=== PATIENT | male | born 1970 | race Caucasian/White ===

== ENCOUNTER 2022-10-07 13:51 | Emergency (ER) | payer OTHER ==
[~2022-10-07] VITALS: Ht 177.8 cm; Wt 95.3 kg
--- NOTE | 2022-10-07 14:14 | NUR ---
Dr Farias at the bedside for MSE.
[2022-10-07] MEDS ORDERED: NAPROXEN 500 MG TABLET ONE (14:20)
[2022-10-07] MEDS ORDERED: CYCLOBENZAPRINE HCL 10 MG TABLET ONE (14:20)
[2022-10-07] MEDS ORDERED: NAPROXEN 500 MG TABLET PO ONE (14:30)
[2022-10-07] MEDS ORDERED: CYCLOBENZAPRINE HCL 10 MG TABLET PO ONE (14:30)
--- NOTE | 2022-10-07 14:34 | NUR ---
X ray in progress.
[2022-10-07] MEDS ORDERED: CYCL10TA9 PO (15:05)
[2022-10-07] MEDS ORDERED: NAPR500T6 PO (15:05)
--- NOTE | 2022-10-07 15:35 | NUR ---
Patient discharged to home in stable condition. Written and verbal after care instructions given. Patient verbalizes understanding of instructions. Stressed follow up or return to ER for worsening s/s.
[2022-10-07 15:36] VITALS: BP 129/70
== END 2022-10-07 15:37 | disposition home or self-care (01) ==
LOC: ER 13:51
DX: M79.605 Pain in left leg (principal); V43.52XA Car driver injured in collision with other type car in traffic accident, initial encounter; Y93.89 Activity, other specified; Y92.410 Unspecified street and highway as the place of occurrence of the external cause; Y99.8 Other external cause status
CPT/HCPCS: 73590; A4663

== ENCOUNTER 2023-03-26 19:21 | Emergency (ER) | payer MEDICAID, OTHER ==
[~2023-03-26] VITALS: Ht 177.8 cm; Wt 90.7 kg
[~2023-03-26 19:21] MED LIST: CYCL10TA9 PO; NAPR500T6 PO
[2023-03-26] MEDS ORDERED: ACETAMINOPHEN 325 MG TABLET PO ONE (20:00)
[2023-03-26] MEDS ORDERED: ACETAMINOPHEN 325 MG TABLET ONE (20:04)
[2023-03-26] MEDS ORDERED: NAPR-1192 PO (22:01)
[2023-03-26 22:08] VITALS: BP 119/77; O2SAT 97
== END 2023-03-26 22:09 | disposition home or self-care (01) ==
LOC: ER 19:24
DX: S09.90XA Unspecified injury of head, initial encounter (principal); M25.561 Pain in right knee; M25.511 Pain in right shoulder; M79.641 Pain in right hand; E78.5 Hyperlipidemia, unspecified; Z79.899 Other long term (current) drug therapy; V43.52XA Car driver injured in collision with other type car in traffic accident, initial encounter; Y93.89 Activity, other specified; Y92.410 Unspecified street and highway as the place of occurrence of the external cause; Y99.8 Other external cause status
CPT/HCPCS: 73030; 73130; A4606; A4663